=== PATIENT | male | born 1955 | race Caucasian/White ===

== ENCOUNTER 2017-01-22 13:47 | Emergency (ER) | payer BC ==
[2017-01-22 13:54] VITALS: BP 157/92
--- NOTE | 2017-01-22 14:13 | ER Document Report ---
ED General - General Chief Complaint: Other Stated Complaint: DRUG WITHDRAWAL Time Seen by Provider: 01/22/17 14:06 Mode of Arrival: Ambulatory Information source: Patient, Relative TRAVEL OUTSIDE OF THE [place] IN LAST 30 DAYS: No - HPI Patient complains to provider of: Ran out of narcotic pain meds and is "shaky" Onset: This morning - Pt states he is getting oxycontin [address] Dodge and ran out recently and is feeling "shaky." Is requesting more pain meds - Related Data Allergies/Adverse Reactions: No Known Allergies Allergy (Verified 01/22/17 13:53) Past Medical History - General Information source: Patient, Relative - Social History Smoking Status: Never Smoker Cigarette use (# per day): No Chew tobacco use (# tins/day): No Smoking Education Provided: No Frequency of alcohol use: daily Drug Abuse: None Family History: Reviewed & Not Pertinent - Past Medical History Cardiac Medical History: Reports: Hx Hypertension Renal/ Medical History: Denies: Hx Peritoneal Dialysis Past Surgical History: Reports: Hx Orthopedic Surgery - Immunizations Hx Diphtheria, Pertussis, Tetanus Vaccination: Yes Review of Systems - Review of Systems Constitutional: No symptoms reported EENT: No symptoms reported Cardiovascular: No symptoms reported Respiratory: No symptoms reported Gastrointestinal: No symptoms reported Genitourinary: No symptoms reported Musculoskeletal: No symptoms reported -: Yes All other systems reviewed and negative Physical Exam - Vital signs Vitals: Temp Pulse Resp BP Pulse Ox 98.4 F 85 20 157/92 H 95 01/22/17 13:52 01/22/17 13:52 01/22/17 13:52 01/22/17 13:52 01/22/17 13:52 - General General appearance: Appears well In distress: None - HEENT Head: Normocephalic Course - Vital Signs Vital signs: Temp Pulse Resp BP Pulse Ox 98.4 F 85 20 157/92 H 95 01/22/17 13:52 01/22/17 13:52 01/22/17 13:52 01/22/17 13:52 01/22/17 13:52
== END 2017-01-22 14:15 | disposition home or self-care (01) ==
LOC: ER 13:47
DX: M25.569 Pain in unspecified knee (principal); F19.939 Other psychoactive substance use, unspecified with withdrawal, unspecified; R25.1 Tremor, unspecified; Z79.899 Other long term (current) drug therapy
CPT/HCPCS: 99283